=== PATIENT | female | born 1960 | race Caucasian/White ===

== ENCOUNTER 2017-07-02 15:07 | Emergency (ER) | payer MEDICAID ==
[~2017-07-02] VITALS: Ht 147.3 cm; Wt 47.6 kg
[~2017-07-02 15:07] MED LIST: ALBU18HF PO; METR500T PO; MIRT30TA6 PO; MOME13HF2 INH
[2017-07-02 17:39] VITALS: BP 111/70
== END 2017-07-02 17:41 | disposition home or self-care (01) ==
LOC: ED 17:29
DX: M54.12 Radiculopathy, cervical region (principal); R60.0 Localized edema; F17.210 Nicotine dependence, cigarettes, uncomplicated; E11.9 Type 2 diabetes mellitus without complications; J44.9 Chronic obstructive pulmonary disease, unspecified
CPT/HCPCS: 72050; 99284